=== PATIENT | male | born 1975 | race Two or more races ===

== ENCOUNTER 2025-05-19 06:22 | Day surgery (SDC) | payer BC, SELFPAY | END 2025-05-19 11:11 | disposition home or self-care (01) | LOC: GI 06:22 | PROVIDERS: ATTENDING PHYSICIAN Internal Medicine Gastroenterology | DX: Z12.11 Encounter for screening for malignant neoplasm of colon (principal); Z83.719 Family history of colon polyps, unspecified; K57.30 Diverticulosis of large intestine without perforation or abscess without bleeding; K64.8 Other hemorrhoids | CPT/HCPCS: G0105 ==